=== PATIENT | female | born 1960 | race Caucasian/White ===

== ENCOUNTER 2018-05-16 17:48 | Inpatient (IN) | payer OTHER ==
[~2018-05-16] VITALS: Ht 154.9 cm; Wt 49.9 kg
[2018-05-16 17:48] VITALS: BP_SYST 147
[2018-05-16] MEDS ORDERED: ACETAMINOPHEN 120 MG SUPP.RECT RC ONE (18:15)
[2018-05-16] MEDS ORDERED: IBUPROFEN 800 MG TABLET PO ONE (18:15)
[2018-05-16 18:38] LABS: CALCIUM 8.7 mg/dL (8.4-11.0); CREATININE 0.66 mg/dL (0.55-1.30); POTASSIUM 3.7 mmol/L (3.5-5.1)
[2018-05-16 18:39] LABS: WHITE BLOOD COUNT (AUTO) 3.5 K/uL (4.8-10.8)
[2018-05-16 18:40] LABS: HEMATOCRIT 37.9 % (36-48); HEMOGLOBIN 12.9 g/dL (12.0-16.0); MEAN CORPUSCULAR HEMOGLOBIN 29 pg (27-31); MEAN CORPUSCULAR HGB CONC 34 % (32-36); MEAN CORPUSCULAR VOLUME 87 fL (79.0-98.0); PLATELET COUNT (AUTO) 198 K/uL (130-430); RED BLOOD CELL COUNT(AUTO) 4.37 MIL/uL (4.2-6.2); RED CELL DISTRIBUTION WIDTH 12.9 % (9.0-15.0)
[2018-05-16 18:41] LABS: BASOPHILS % (AUTO) 0.5 % (0.0-2.0); EOSINOPHILS # (AUTO) 0.1 K/uL (0.0-0.4); EOSINOPHILS % (AUTO) 1.8 % (0.0-4.0); LYMPHOCYTES # (AUTO) 0.8 K/uL (1.0-5.5); LYMPHOCYTES % (AUTO) 22.1 % (20.5-51.5); MONOCYTES # (AUTO) 0.4 K/uL (0.0-1.0); NEUTROPHILS # (AUTO) 2.2 K/uL (1.8-7.7); NEUTROPHILS % (AUTO) 64.6 % (40.0-70.0)
[2018-05-16 18:44] LABS: ALBUMIN 3.9 g/dL (3.4-4.8)
[2018-05-16 18:57] LABS: PROTHROMBIN TIME 10.6 SECS (9.5-12.5)
[2018-05-16] MEDS ORDERED: cefTRIAXone 1 GM IVPB PREMIX 50 ML IV ONE (19:00)
[2018-05-16] MEDS ORDERED: NACL 0.9% 2,000 ML IV ONE (19:00)
[2018-05-16 20:26] LABS: BILIRUBIN,URINE NEGATIVE (NEGATIVE); BLOOD, URINE 2+ (NEGATIVE); CLARITY/URINE CLEAR (CLEAR); COLOR,URINE YELLOW (YELLOW); GLUCOSE,URINE NEGATIVE (NEGATIVE); KETONES,URINE NEGATIVE (NEGATIVE); LEUKOCYTE ESTERASE ,URINE NEGATIVE (NEGATIVE); NITRITE, URINE NEGATIVE (NEGATIVE); PH,URINE 8.5 (5.0-8.0); PROTEIN URINE 1+ (NEGATIVE); UROBILINOGEN,URINE 0.2 (0.2-1.0)
[2018-05-16] MEDS ORDERED: ALBUTEROL SULFATE 0.083% 2.5 MG/3 ML VIAL.NEB INH PRN (20:30)
[2018-05-16] MEDS ORDERED: ONDANSETRON HCL 4 MG/2 ML VIAL IVP PRN (20:30)
[2018-05-16 20:37] LABS: BACTERIA,URINE FEW /HPF (None Seen); WBC,URINE 0-3 /HPF (0-3)
[2018-05-16 20:38] LABS: MUCUS,URINE None Seen /LPF (None Seen)
[2018-05-16] MEDS ORDERED: ASPI-1153 PO (20:40)
[2018-05-16] MEDS ORDERED: OMEP20TA20 PO (20:40)
[2018-05-16] MEDS ORDERED: LIP20 PO (20:40)
[2018-05-16 21:55] VITALS: BP_SYST 102
[2018-05-16 22:51] VITALS: BP_SYST 102
[2018-05-16] MEDS ORDERED: AZITHROMYCIN 500 MG/VIAL (ZITHROMAX) IV ONE (23:32)
[2018-05-16] MEDS: NACL 0.9% 1,000 ML IV SCH (23:48)
[2018-05-16] MEDS: AZITHROMYCIN 500 MG in NS 250 ML IV SCH (23:49)
[2018-05-17] MEDS ORDERED: NS 500 ML IV ONE (01:00)
[2018-05-17 02:23] VITALS: BP_SYST 88
[2018-05-17] MEDS: OMEPRAZOLE 20 MG CAPSULE.DR (PriLOSEC) PO SCH (06:04)
[2018-05-17] MEDS: ACETAMINOPHEN 325 MG TABLET PO PRN ×2 (06:06→19:36)
[2018-05-17 07:18] LABS: CALCIUM 8.2 mg/dL (8.4-11.0); CREATININE 0.42 mg/dL (0.55-1.30); POTASSIUM 3.7 mmol/L (3.5-5.1)
[2018-05-17 07:30] LABS: HEMATOCRIT 33.1 % (36-48); HEMOGLOBIN 11.2 g/dL (12.0-16.0); MEAN CORPUSCULAR HEMOGLOBIN 29 pg (27-31); MEAN CORPUSCULAR HGB CONC 34 % (32-36); MEAN CORPUSCULAR VOLUME 87 fL (79.0-98.0); PLATELET COUNT (AUTO) 160 K/uL (130-430); RED BLOOD CELL COUNT(AUTO) 3.81 MIL/uL (4.2-6.2); RED CELL DISTRIBUTION WIDTH 13.1 % (9.0-15.0); WHITE BLOOD COUNT (AUTO) 2.9 K/uL (4.8-10.8)
[2018-05-17 07:31] LABS: BASOPHILS % (AUTO) 0.6 % (0.0-2.0); EOSINOPHILS # (AUTO) 0.1 K/uL (0.0-0.4); EOSINOPHILS % (AUTO) 2.8 % (0.0-4.0); LYMPHOCYTES # (AUTO) 0.6 K/uL (1.0-5.5); LYMPHOCYTES % (AUTO) 21.5 % (20.5-51.5); MONOCYTES # (AUTO) 0.5 K/uL (0.0-1.0); MONOCYTES % (AUTO) 16.8 % (1.7-9.3); NEUTROPHILS # (AUTO) 1.7 K/uL (1.8-7.7)
[2018-05-17 08:00] VITALS: BP_SYST 105
[2018-05-17] MEDS: ASPIRIN 81 MG TABLET(ECOTRIN) PO SCH (09:06)
[2018-05-17] MEDS: ATORVASTATIN 20 MG TABLET PO SCH (09:06)
[2018-05-17] MEDS: ENOXAPARIN SODIUM 40 MG/0.4 ML SYRINGE SUBCUT SCH (09:12)
[2018-05-17 09:41] LABS: NEUTROPHILS % (AUTO) 58.3 % (40.0-70.0)
[2018-05-17 11:33] VITALS: BP_SYST 91
[2018-05-17] MEDS: NACL 0.9% 1,000 ML IV SCH (13:18)
[2018-05-17 15:39] VITALS: BP_SYST 122
[2018-05-17 20:00] VITALS: BP_SYST 107
[2018-05-17] MEDS ORDERED: cefTRIAXone 1 GM in D5W 50 ML IV SCH (20:00)
[2018-05-17] MEDS: HYDROCORTISONE 2.5%, 30 GM TOPICAL CREAM TP SCH (20:40)
[2018-05-17] MEDS: AZITHROMYCIN 500 MG in NS 250 ML IV SCH (22:11)
[2018-05-17] MEDS: DIPHENHYDRAMINE INJ 50 MG/ML VIAL IVP PRN (23:25)
[2018-05-17 23:53] VITALS: BP_SYST 102
[2018-05-18] MEDS: NACL 0.9% 1,000 ML IV SCH ×3 (03:36→20:11)
[2018-05-18] MEDS: OMEPRAZOLE 20 MG CAPSULE.DR (PriLOSEC) PO SCH (06:14)
[2018-05-18] MEDS: DIPHENHYDRAMINE INJ 50 MG/ML VIAL IVP PRN ×3 (07:38→22:56)
[2018-05-18 07:41] VITALS: BP_SYST 119
[2018-05-18 07:46] LABS: WHITE BLOOD COUNT (AUTO) 3.4 K/uL (4.8-10.8)
[2018-05-18 07:47] LABS: EOSINOPHILS % (AUTO) 4.1 % (0.0-4.0); HEMATOCRIT 31.6 % (36-48); HEMOGLOBIN 10.8 g/dL (12.0-16.0); LYMPHOCYTES % (AUTO) 42.3 % (20.5-51.5); MEAN CORPUSCULAR HEMOGLOBIN 30 pg (27-31); MEAN CORPUSCULAR HGB CONC 34 % (32-36); MEAN CORPUSCULAR VOLUME 87 fL (79.0-98.0); MONOCYTES % (AUTO) 14.7 % (1.7-9.3); PLATELET COUNT (AUTO) 181 K/uL (130-430); RED BLOOD CELL COUNT(AUTO) 3.63 MIL/uL (4.2-6.2); RED CELL DISTRIBUTION WIDTH 13.1 % (9.0-15.0)
[2018-05-18 07:48] LABS: BASOPHILS % (AUTO) 0.5 % (0.0-2.0); EOSINOPHILS # (AUTO) 0.1 K/uL (0.0-0.4); LYMPHOCYTES # (AUTO) 0.5 K/uL (1.0-5.5); MONOCYTES # (AUTO) 0.1 K/uL (0.0-1.0); NEUTROPHILS # (AUTO) 1.3 K/uL (1.8-7.7)
[2018-05-18 07:51] LABS: CALCIUM 8.6 mg/dL (8.4-11.0); CREATININE 0.43 mg/dL (0.55-1.30); POTASSIUM 3.2 mmol/L (3.5-5.1)
[2018-05-18 08:07] LABS: ALBUMIN 2.9 g/dL (3.4-4.8); TOTAL BILIRUBIN 0.7 mg/dL (0.0-1.0)
[2018-05-18] MEDS: ASPIRIN 81 MG TABLET(ECOTRIN) PO SCH (09:02)
[2018-05-18] MEDS: ATORVASTATIN 20 MG TABLET PO SCH (09:02)
[2018-05-18] MEDS: HYDROCORTISONE 2.5%, 30 GM TOPICAL CREAM TP SCH ×2 (09:02→20:19)
[2018-05-18] MEDS: ENOXAPARIN SODIUM 40 MG/0.4 ML SYRINGE SUBCUT SCH (09:07)
[2018-05-18] MEDS: POTASSIUM CHLORIDE 20 MEQ TAB.PRT.SR PO SCH ×2 (10:07→13:34)
[2018-05-18] MEDS ORDERED: OSELTAMIVIR PHOSPHATE 75 MG CAPSULE PO ONE (11:45)
[2018-05-18 12:05] VITALS: BP_SYST 106
[2018-05-18 13:05] LABS: NEUTROPHILS % (AUTO) 38.4 % (40.0-70.0)
[2018-05-18] MEDS: ACYCLOVIR IV 500 MG in D5W 100 ML IV SCH ×2 (13:36→21:55)
[2018-05-18 16:40] VITALS: BP_SYST 107
[2018-05-18] MEDS: CEFEPIME 1 GM in D5W 50 ML IV SCH (20:11)
[2018-05-18] MEDS: OSELTAMIVIR PHOSPHATE 75 MG CAPSULE PO SCH (20:11)
[2018-05-18 20:30] VITALS: BP_SYST 111
[2018-05-19 00:16] VITALS: BP_SYST 106
[2018-05-19] MEDS: ACYCLOVIR IV 500 MG in D5W 100 ML IV SCH (06:04)
[2018-05-19] MEDS: OMEPRAZOLE 20 MG CAPSULE.DR (PriLOSEC) PO SCH (06:04)
[2018-05-19] MEDS: DIPHENHYDRAMINE INJ 50 MG/ML VIAL IVP PRN (06:42)
[2018-05-19 08:06] VITALS: BP_SYST 104
[2018-05-19] MEDS: ATORVASTATIN 20 MG TABLET PO SCH (09:00)
[2018-05-19] MEDS: HYDROCORTISONE 2.5%, 30 GM TOPICAL CREAM TP SCH (09:00)
[2018-05-19] MEDS: ENOXAPARIN SODIUM 40 MG/0.4 ML SYRINGE SUBCUT SCH (09:00)
[2018-05-19] MEDS: CEFEPIME 1 GM in D5W 50 ML IV SCH (09:00)
[2018-05-19] MEDS: OSELTAMIVIR PHOSPHATE 75 MG CAPSULE PO SCH (09:00)
[2018-05-19] MEDS: ASPIRIN 81 MG TABLET(ECOTRIN) PO SCH (09:00)
[2018-05-19] MEDS ORDERED: OSEL75CA PO (09:18)
[2018-05-19] MEDS ORDERED: z-pack PO (09:19)
[2018-05-19 09:28] VITALS: BP_SYST 104
[2018-05-19 10:25] VITALS: BP_SYST 104
[2018-05-20 21:15] LABS: MYCOPLASMA PNEUMONIAE IgM <770 U/mL (0-769)
== END 2018-05-19 10:15 | disposition home or self-care (01) | DRG 871 ==
LOC: SED 17:48 → STU 20:28
PROVIDERS: ADMIT Internal Medicine; ATTEND Internal Medicine
DX: A41.9 Sepsis, unspecified organism (principal); J11.08 Influenza due to unidentified influenza virus with specified pneumonia; J12.9 Viral pneumonia, unspecified; J18.1 Lobar pneumonia, unspecified organism; C43.9 Malignant melanoma of skin, unspecified; B00.1 Herpesviral vesicular dermatitis; D70.9 Neutropenia, unspecified; E78.5 Hyperlipidemia, unspecified; H60.90 Unspecified otitis externa, unspecified ear; K21.9 Gastro-esophageal reflux disease without esophagitis; T45.1X5A Adverse effect of antineoplastic and immunosuppressive drugs, initial encounter; Y92.89 Other specified places as the place of occurrence of the external cause; Z92.21 Personal history of antineoplastic chemotherapy; Z79.899 Other long term (current) drug therapy; Z79.82 Long term (current) use of aspirin
CPT/HCPCS: 36415; 71045; 80053; 81000-TC; 82150-TC; 82550-TC; 83605; 83690-TC; 84484; 85025; 85610-TC; 85651-TC; 85730-TC; 86480; 86694; 86710; 86738; 87040-TC; 87497; 93005; 96365; 99285; G0378; G9035; J0133; J0456; J0692; J0696; J1200; J1650; J7030; J7050; J7060

== ENCOUNTER 2022-06-05 05:35 | Emergency (ER) | payer BC, OTHER ==
[~2022-06-05 05:35] MED LIST: ASPI-1393 PO; LIP20 PO; OMEP20TA20 PO; OSEL75CA PO; z-pack PO
--- NOTE | 2022-06-05 05:35 | NUR ---
Patient to ER bed 01 to gown for evaluation. Side rails up. Report given to QUYNH HERMAN. PT VILMA FROM HOME. PER EMS PT LKW WAS 4/4 AT 2130. TOLD EMS THAT PT WAS ACTING UNUSUAL. PT THEN HAD UNWITNESSED FALL IN BATHROOM AT 0430. PT WAS FOUND ON BATHROOM FLOOR. PT ARRIVED A&O X0, BASELINE A&O X4. EMS REPORTS PT HAD SEIZURE IN ROUTE. NO HEAD TRUAMA NOTED.
--- NOTE | 2022-06-05 05:35 | NUR ---
CODE STROKE CALLED
[2022-06-05 05:38] VITALS: BP_SYST 140
--- NOTE | 2022-06-05 05:38 | NUR ---
BLOOD SUGAR 159. MADE AWARE.
--- NOTE | 2022-06-05 05:40 | NUR ---
PT TO CT WITH ADMINISTRATIVE INTERN AND QUYNH HERMAN.
[2022-06-05] MEDS ORDERED: LORazepam 2 MG/ML VIAL ONE (05:44)
--- NOTE | 2022-06-05 05:51 | NUR ---
PT BACK FROM CT VIA GURTRISHA ACCOMPANIED BY CASIE RN.
--- NOTE | 2022-06-05 05:52 | NUR ---
LATE ENTRY: QUYNH HERMAN CALLED NURSING STATION TO REPORT PT HAVING SEIZURE IN CT AT 0542. VEBRAL ORDER OF 2 MG OF ATIVAN IVP GIVEN BY DR. CARRILLO. 2MG OF ATIVAN IVP GIVEN AT [address]
[2022-06-05] MEDS ORDERED: ETOMIDATE 20 MG/ 10 ML VIAL (AMIDATE) ONE (06:00)
[2022-06-05] MEDS ORDERED: ROCURONIUM BROMIDE 10 MG/ML (ZEMURON) ONE (06:00)
--- NOTE | 2022-06-05 06:00 | NUR ---
BACK FR CT. ALL SEIZURE PRECAUTIONS IMPLEMENTED. PADDED SR'S APPLIED. YANKUER SUCTION AT BEDSIDE. CONNECTED TO NEWSPAPER DISTRIBUTOR SUPERVISOR
--- NOTE | 2022-06-05 06:04 | NUR ---
TELENEURO DOCTOR TO DOCTOR.
[2022-06-05] MEDS ORDERED: levETIRAcetam 1,000 MG in NS 90 ML IV ONE (06:15)
[2022-06-05] MEDS ORDERED: levETIRAcetam 1,500 MG in NS 85 ML IV ONE (06:15)
--- NOTE | 2022-06-05 06:15 | NUR ---
FAXED FACESHEET AND HEAD CT TO [facility] FAX: [phone] ATTN: [id number]
[2022-06-05 06:20] LABS: BASOPHILS % (AUTO) 0.1 % (0.0-2.0); EOSINOPHILS # (AUTO) 0.1 K/uL (0.0-0.4); EOSINOPHILS % (AUTO) 1.6 % (0.0-4.0); HEMATOCRIT 37.5 % (36-48); HEMOGLOBIN 12.1 g/dL (12.0-16.0); LYMPHOCYTES # (AUTO) 4.2 K/uL (1.0-5.5); LYMPHOCYTES % (AUTO) 57.5 % (20.5-51.5); MEAN CORPUSCULAR HEMOGLOBIN 30 pg (27-31); MEAN CORPUSCULAR HGB CONC 32 % (32-36); MEAN CORPUSCULAR VOLUME 94 fL (79.0-98.0); MONOCYTES # (AUTO) 0.7 K/uL (0.0-1.0); MONOCYTES % (AUTO) 8.9 % (1.7-9.3); NEUTROPHILS # (AUTO) 2.3 K/uL (1.8-7.7); NEUTROPHILS % (AUTO) 31.9 % (40.0-70.0); RED CELL DISTRIBUTION WIDTH 17.2 % (9.0-15.0); WHITE BLOOD COUNT (AUTO) 7.3 K/uL (4.8-10.8)
--- NOTE | 2022-06-05 06:25 | NUR ---
RT NOTE: [address] Bneavidez with a 7.5ETT successfully on the first attempt. Secured ETT at 21cm at the teeth. Bilateral chest rise post intubation. EtCO2 color change. Breath sounds are equal. No sounds heard over the stomach. 0628 Patient placed on Vent with charted settings. See vent charting. Patient tolerating settings well. Will obtain blood gas after 30 mins.
--- NOTE | 2022-06-05 06:29 | NUR ---
DR. CARRILLO SPEAKING WITH CINTHYA DOC.
[2022-06-05] MEDS ORDERED: DEXAMETHASONE SOD PHOSPHATE 10 MG/ML VIAL IVP ONE (06:30)
[2022-06-05 06:39] LABS: ANION GAP 18 (5-15); CALCIUM 8.7 mg/dL (8.4-11.0); CHLORIDE 104 mmol/L (98-107); CREATININE 0.79 mg/dL (0.55-1.30); GFR AFRICAN AMERICAN 95 mL/min (>90); GLUCOSE 157 mg/dL (70-99); UREA NITROGEN, BLOOD 13 mg/dL (8-21)
[2022-06-05] MEDS ORDERED: ETOMIDATE 20 MG/ 10 ML VIAL (AMIDATE) IVP ONE (06:45)
[2022-06-05] MEDS ORDERED: ROCURONIUM BROMIDE 10 MG/ML (ZEMURON) IV ONE (06:45)
[2022-06-05] MEDS ORDERED: PROPOFOL DRIP 100 ML IV ONE (06:45)
[2022-06-05 06:46] LABS: ALANINE AMINOTRANSFERASE 16 U/L (12-78); ALBUMIN 3.8 g/dL (3.4-4.8); ASPARTATE AMINOTRANSFERASE 46 U/L (10-37); TOTAL BILIRUBIN 0.6 mg/dL (0.0-1.0)
[2022-06-05 06:57] LABS: PLATELET COUNT (AUTO) 45 K/uL (130-430)
[2022-06-05] MEDS ORDERED: NACL 0.9% 1,000 ML IV ONE (07:00)
--- NOTE | 2022-06-05 07:00 | NUR ---
PER MD REQUEST SOFT RESTRAINTS WERE ATTACHED TO PT ARM EXTREITIES AT 06:55
[2022-06-05 07:02] LABS: BILIRUBIN,URINE NEGATIVE (NEGATIVE); BLOOD, URINE 1+ (NEGATIVE); CLARITY/URINE CLEAR (CLEAR); COLOR,URINE YELLOW (YELLOW); GLUCOSE,URINE NEGATIVE (NEGATIVE); KETONES,URINE NEGATIVE (NEGATIVE); LEUKOCYTE ESTERASE ,URINE NEGATIVE (NEGATIVE); NITRITE, URINE NEGATIVE (NEGATIVE); PROTEIN URINE 2+ (NEGATIVE); UROBILINOGEN,URINE 0.2 (0.2-1.0)
--- NOTE | 2022-06-05 07:07 | NUR ---
late entry: PREP FOR INTUBATION, RT, ER DR, 3 RNS AT BEDSIDE. 0619: BAGGING PT SATURATING @ 100% BP: 118/87 HR:120 0619: ETOMIDATE 10MG IVP 0620: GAGE 15MG IVP 0621: INTUBATED , 21CM @ TEETH 0622 0623: VS: 125, 99% VENT SETTINGS, BP: 122/93 0625: OGT IN 0630: F/C IN 0650: CXR DONE 0700: INITRIATED PROPOFOL @ 5MCG/KG/MIN. 0705: TITRATED UP TO 10MCG/KG/MIN 0710: TITRATED UP TO 15MCG/KG/MIN ORDERED 0715: TITRATED UP TO 20MCG/KG/MIN. VS: 125/62, 117,18,100% ON VENT SETTINGS. PT W/ 2 IVS 20G JOAN WRIST. SAFE & HAZARD FREE ENVIRONMENT PROVIDED. CON'T SEIZURE PRECAUTIONS.
[2022-06-05 07:10] LABS: PROTHROMBIN TIME 10.3 SECS (9.5-12.5)
[2022-06-05 07:15] LABS: BACTERIA,URINE FEW /HPF (None Seen); HYALINE CASTS, URINE 0-10 /LPF (None Seen); MUCUS,URINE 1+ /LPF (None Seen); WBC,URINE 0-3 /HPF (0-3)
[2022-06-05] MEDS ORDERED: LORazepam 2 MG/ML VIAL IVP ONE (07:15)
--- NOTE | 2022-06-05 07:18 | NUR ---
REPORT GIVEN TO QUYNH TORRE
--- NOTE | 2022-06-05 07:38 | NUR ---
LATE ENTRY: EMT SHIRLEY Mena SWABBED FOR COVID AND MRSA APPRX. 06:48 ADN SENT SPECI OFF TO LAB
[2022-06-05 07:46] LABS: BARBITURATE, URINE NEGATIVE (NEG <=200); BENZODIAZEPINE, URINE NEGATIVE (NEG <=150); CANNABINOID, URINE POSITIVE (NEG <=50); COCAINE, URINE NEGATIVE (NEG <=150); METHAMPHETAMINES SCREEN,URINE NEGATIVE (NEG <=500); OPIATE, URINE NEGATIVE (NEG <=100); PHENCYCLIDINE SCREEN,URINE NEGATIVE (NEG <=25); UR TRICYCLIC ANTIDEPRESSANTS NEGATIVE (NEG <=300); URINE AMPHETAMINE NEGATIVE (NEG <=500); URINE METHADONE NEGATIVE (NEG <=200); URINE OXYCODONE SCREEN NEGATIVE (NEG <=100); URINE PROPOXYPHENE SCREEN NEGATIVE (NEG <=300)
--- NOTE | 2022-06-05 08:00 | NUR ---
RT NOTE: 0800 Increased rate to [address] Mari. Decreased FiO2 to 50% per PaO2 ABG results. New setting is AC 20, Vt 350, FiO2 50%.
--- NOTE | 2022-06-05 08:13 | NUR ---
DUE TO TRANSFER NEEDING TO BE INPATIENT TRANSFER (ICU DIRECT ADMIT), PT HAS BEEN ACCEPTED BY [facility], BUT THEY WILL NEED TWO MORE DOCS ON CASE AND ICU BED. STATED IT WILL TAKE A LONGER THAN USUAL ER TO ER TRANSFERS. WILL NOTIFY ED DOC, RN AND FORM RAISER REGARDING UPDATE. SPOKE TO WADE [place] [facility] TRANSFER [facility]
--- NOTE | 2022-06-05 08:30 | NUR ---
PROPOFOL INCREASED FROM 30 MCG/KG/MIN TO 35.
--- NOTE | 2022-06-05 08:40 | NUR ---
TALKED TO WADE AT [facility]. WADE STATED THEY ARE TRYING TO SECURE A ROOM IN ICU FOR TRANSFER. PT INFO WAS GIVEN. STILL WAITING FOR TRANSFER CONFIRMATION
--- NOTE | 2022-06-05 08:45 | NUR ---
AND SON AT BEDSIDE
--- NOTE | 2022-06-05 09:00 | NUR ---
PROPOFOL INCREASED FROM 35 MCG/KG/MIN TO 40.
--- NOTE | 2022-06-05 09:10 | NUR ---
PROPOFOL INCREASED FROM 40 MCG/KG/MIN TO 45. BP 123/62, 125 HR
--- NOTE | 2022-06-05 09:15 | NUR ---
TRANSFER INFO [facility] ER ACCEPTING: [facility] NEURO: JIMMY MUNOZ [phone] STROKE ALERT LEVEL. 2 [facility] STATED IT WILL BE A MORE APPROPRIATE PROCESS FOR PT TO TRANSFER ER TO ER FOR CARE. REQUESTED WE SET UP TRANSPORT AND IF ANY PROBLEMS TO CALL BACK. SPOKE TO WADE
--- NOTE | 2022-06-05 09:27 | NUR ---
[facility] ETA 1000
--- NOTE | 2022-06-05 09:28 | NUR ---
PROPOFOL INCREASED FROM 45 MCG/KG/MIN TO 50.
--- NOTE | 2022-06-05 09:35 | NUR ---
PT TO BE TRANSFERED TO [facility]. REPORT WAS CALLED AND GIVEN TO HE BEAUCHAMP. [facility] TIME ETA IS 1000. PT SIGN TRANSFER AUTHORIZATION AND AWARE.
[2022-06-05 10:22] VITALS: BP_SYST 110
--- NOTE | 2022-06-05 10:24 | NUR ---
Patient to be transferred to [facility]. Is being transferred due to higher level of care. Receiving facility has accepting physician and available space. ER physician has signed transfer form. Patient or responsible libertarian has agreed to transfer and signed form. Patient belongings inventoried and will be sent with patient. Copy of nursing notes, lab reports, EKG, Physicians Orders and X-rays to be sent with patient. Report called to at receiving facility. Receiving physician is DR ANTOINE . [facility] has been called for transfer. ETA is 1000.
== END 2022-06-05 10:24 | disposition short-term general hospital (02) ==
LOC: SED 05:35
DX: R41.82 Altered mental status, unspecified (principal); R56.9 Unspecified convulsions; D69.6 Thrombocytopenia, unspecified; G93.6 Cerebral edema; Z79.899 Other long term (current) drug therapy; Z20.822 Contact with and (suspected) exposure to COVID-19
CPT/HCPCS: 99291; 94002; 31500 ×2; 96365; 71045; 96375; 70450; 96361; 87426; 80307; 80053; 81000; 82962; 85025; 85610; 85730; 86886; 86900; 86901; 87081; 84484; 36415; 93005; 76376; 94640; 36600; 82803; J1100; J3490; J2060; J2704; J7030